=== PATIENT | male | born 1940 | race Caucasian/White ===

== ENCOUNTER 2021-09-07 09:58 | Outpatient (CLI) | payer MEDICARE, SELFPAY ==
--- NOTE | 2021-09-07 10:19 | MR_ITS ---
WS: [id number] MRI LUMBAR SPINE WITH CONTRAST TECHNIQUE: Sagittal T1, T2 and STIR imaging. Axial T1 and T2 imaging. Post gadolinium imaging was obt ained. CLINICAL INFORMATION: RIGHT LUMBAR RADICULITIS COMPARISON: None. FINDINGS: Mild lumbar curve. No acute compression. Grade 1 anterolisthesis L5 on S1 measuring 8 mm with chronic spondylolysis. L1-L2: Mild disc bulging with slight effacement of ventral thecal sac. Mild facet arthropathy. Spinal canal and foramen are patent. L2-L3: Mild disc bulging and osteophytic ridging. Impingement on the right greater than left subartic ular recess. Mild facet arthropathy. Mild right and no significant left foraminal narrowing. Mild fac et arthropathy. L3-L4: Mild disc bulging with slight impingement on the right subarticular recess and traversing L4 n erve root. Mild facet arthropathy. Mild right foraminal narrowing. L4-L5: Mild disc bulging and osteophytic ridging. Left to right moderate to severe narrowing of the t hecal sac dorsally extending into the laminectomy defect with crowding of the cauda equina nerve root lets dorsally. Moderate facet arthropathy. Small bilateral foraminal protrusions with right greater t hernandez left foraminal narrowing. Impingement on the exiting L4 nerve roots bilaterally. L5-S1: Grade 1 anterolisthesis L5 on S1 with chronic spondylolysis. Spinal canal is patent. Advanced facet arthropathy. Severe left and mild/moderate right foraminal narrowing. Left renal peripelvic cyst. Incidental Tarlov cyst in the sacrum. MR/MR lumbar spine wo/w con [id number] IMPRESSION: 1. Mild lumbar curve. No acute compression. Grade 1 anterolisthesis L5 on S1 w ith chronic spondylolysis. 2. Moderate to severe left to right narrowing of the thecal sac dorsally at th e L4 and L5 level extending into the laminectomy defects. 3. Moderate bilateral L4-5 foraminal narrowing right greater than left. 4. Severe left L5-S1 foraminal narrowing. 5. Impingement on the right subarticular recess L2-3 and L3-4.
== END 2021-09-07 09:59 | disposition home or self-care (01) ==
PROVIDERS: PCP Nurse Practitioner Family; Visit Provider Physical Medicine & Rehabilitation
DX: M54.16 Radiculopathy, lumbar region (principal); M51.36 Other intervertebral disc degeneration, lumbar region; M47.816 Spondylosis without myelopathy or radiculopathy, lumbar region; M47.817 Spondylosis without myelopathy or radiculopathy, lumbosacral region
CPT/HCPCS: 72158; A9579